=== PATIENT | male | born 1980 ===

== ENCOUNTER 2017-09-10 21:36 | Emergency (ER) | payer OTHER ==
[2017-09-10 21:53] VITALS: BP 116/78; PULSE 78; RESP 18; TEMP 97.9; O2SAT 99
[2017-09-10] MEDS ORDERED: Tdap Vaccine 0.5 ml Vial (10-64 yrs) IM ONE (22:57)
[2017-09-10] MEDS ORDERED: Lidocaine 1% Inj (20ml) IJ ONE (22:57)
[2017-09-10] MEDS ORDERED: Lidocaine 2% Inj (20ml) INFIL ONE (23:24)
--- NOTE | 2017-09-10 23:36 | ED PDOC ---
Upper Extremity Pain/Injury Time Seen by Provider: 09/10/17 22:54 Chief Complaint (Nursing): Abnormal Skin Integrity History Per: Patient Additional Complaint(s): Pt. states earlier today while at work he accidentally cut himself with a knife on the L thumb. Denies numbness, tingling, FB sensation. Past Medical History Reviewed: Historical Data, Nursing Documentation, Vital Signs Vital Signs: Last Vital Signs Temp 97.9 F 09/10/17 21:51 Pulse 78 09/10/17 21:51 Resp 18 09/10/17 21:51 BP 116/78 09/10/17 21:51 Pulse Ox 99 09/10/17 21:51 - Family History Family History: States: No Known Family Hx - Home Medications Home Medications: Ambulatory Orders Medication Instructions Recorded Cephalexin [cephalexin] 500 mg PO Q6 #28 cap 09/11/17 - Allergies Allergies/Adverse Reactions: Allergies Allergy/AdvReac Type Severity Reaction Status Date / Time No Known Allergies Allergy Verified 09/10/17 21:51 Review of Systems ROS Statement: Except As Marked, All Systems Reviewed And Found Negative Physical Exam - Physical Exam Appears: Positive for: Well, Non-toxic, No Acute Distress Skin: Positive for: Normal Color, Warm. Negative for: Rash Eye Exam: Positive for: Normal appearance Pulses-Radial (L): 2+ Extremity: Positive for: Normal ROM (L Thumb with FROM actively), Other (Dorsal surface of L thumb with 3 inch linear superficial laceration without active bleeding; L thumb with cap refill < 2 seconds) Neurologic/Psych: Positive for: Alert, Oriented - ECG O2 Sat by Pulse Oximetry: 99 Procedures - Laceration/Wound Repair laceration repair Wound Repaired With: Sutures Suture Size/Type: 5:0, proline, nylon Number of Sutures: 19 Wound Complexity: Intermediate Sterile Dressing Applied?: Yes Splint Applied?: Yes (velcro thumb splint applied by PA) Disposition - Clinical Impression Clinical Impression: Thumb laceration - Patient ED Disposition Is Patient to be Admitted: No - Disposition Referrals: [facility] [Outside] Disposition: Routine/Home Disposition Time: 00:55 Condition: STABLE Additional Instructions: Suture removal in 14 days. Return to ED in 48 hours for wound check. Prescriptions: Cephalexin [cephalexin] 500 mg PO Q6 #28 cap Instructions: Wound Care (DC), Laceration Repair With Stitches (DC) Forms: [employer] (Vietnamese), [facility] ED School/Work Excuse Print Language: LITHUANIAN
[2017-09-11] MEDS ORDERED: Tdap Vaccine 0.5 ml Vial (10-64 yrs) IM ONE (00:09)
== END 2017-09-11 00:53 | disposition home or self-care (01) ==
LOC: H.ER 21:36
DX: S61.012A Laceration without foreign body of left thumb without damage to nail, initial encounter (principal); W26.0XXA Contact with knife, initial encounter; Y99.0 Civilian activity done for income or pay; Z23 Encounter for immunization

== ENCOUNTER 2017-09-14 12:05 | Emergency (ER) | payer OTHER ==
[2017-09-14 12:18] VITALS: RESP 18
--- NOTE | 2017-09-14 12:31 | ED PDOC ---
HPI: Wound Care - HPI Time Seen by Provider: 09/14/17 12:19 Chief Complaint (Nursing): Wound Check Chief Complaint (Provider): Wound Check History Per: Patient Exam Limitations: no limitations Location Of Injury: Left: Hand (left thumb) Additional Complaint(s): 37 year old male presents to the ED for a wound check. Patient reports he was here 4 days ago for repair of laceration to left thumb. Patient states that he has been taking keflex as prescribed. Patient denies any fever, chills or drainage from affected area. Tetanus is up to date. PCP: none Past Medical History Reviewed: Historical Data, Nursing Documentation, Vital Signs Vital Signs: Last Vital Signs Temp 97.9 F 09/14/17 12:16 Pulse 86 09/14/17 12:16 Resp 18 09/14/17 12:16 BP 128/73 09/14/17 12:16 Pulse Ox 98 09/14/17 12:16 - Medical History PMH: No Chronic Diseases - Family History Family History: States: No Known Family Hx - Living Arrangements Living Arrangements: With Family - Social History Current smoker - smoking cessation education provided: No Alcohol: None Drugs: Denies - Immunization History Hx Tetanus Toxoid Vaccination: Yes - Home Medications Home Medications: Ambulatory Orders Medication Instructions Recorded Cephalexin [cephalexin] 500 mg PO Q6 #28 cap 09/11/17 - Allergies Allergies/Adverse Reactions: Allergies Allergy/AdvReac Type Severity Reaction Status Date / Time No Known Allergies Allergy Verified 09/14/17 12:15 Review of Systems ROS Statement: Except As Marked, All Systems Reviewed And Found Negative Constitutional: Negative for: Fever Skin: Positive for: Other (wound check of laceration to left thumb) Physical Exam - Reviewed Nursing Documentation Reviewed: Yes Vital Signs Reviewed: Yes - Physical Exam Appears: Positive for: Well, Non-toxic, No Acute Distress Skin: Positive for: Normal Color. Negative for: Rash Eye Exam: Positive for: Normal appearance Extremity: Positive for: Normal ROM, Other (well healing sutured laceration to the left thumb with no infection noted, N/V intact) Neurologic/Psych: Positive for: Alert, Oriented. Negative for: Motor/Sensory Deficits - ECG O2 Sat by Pulse Oximetry: 98 (RA) Pulse Ox Interpretation: Normal Medical Decision Making Medical Decision Making: Initial Impression: 37 year old male here for wound check Wound is healing well, sutures are intact, no infection noted. Patient was advised to return on September 24 for suture removal or sooner for any worsening symptoms or concerns. He is advised to continue with antibiotics to completion. Scribe Attestation: Documented by Misha Mello acting as a scribe for Miroslava LANG. Provider Scribe Attestation: All medical record entries made by the Scribe were at my direction and personally dictated by me. I have reviewed the chart and agree that the record accurately reflects my personal performance of the history, physical exam, medical decision making, and the department course for this patient. I have also personally directed, reviewed, and agree with the discharge instructions and disposition. Disposition - Clinical Impression Clinical Impression: Encounter for wound re-check, Thumb laceration - Patient ED Disposition Is Patient to be Admitted: No Counseled Patient/Family Regarding: Need For Followup - Disposition Referrals: [facility] [Outside] Disposition: Routine/Home Disposition Time: 12:36 Condition: STABLE Additional Instructions: CONTINUE WITH ANTIBIOTICS DIRECTED. WASH WOUND DAILY WITH SOAP AND WATER. RETURN September FOR SUTURE REMOVAL OR SOONER IF WORSE. Instructions: Laceration Repair With Stitches (DC) Forms: [employer] (Cymro)
[2017-09-14 12:36] VITALS: BP 112/80; PULSE 81; TEMP 98
[2017-09-14 12:37] VITALS: O2SAT 98
== END 2017-09-14 13:00 | disposition home or self-care (01) ==
LOC: H.ER 12:05
DX: Z48.00 Encounter for change or removal of nonsurgical wound dressing (principal)

== ENCOUNTER 2017-09-24 11:54 | Emergency (ER) | payer OTHER ==
[2017-09-24 11:59] VITALS: BP 142/82; PULSE 65; RESP 17; TEMP 98.7; O2SAT 98
--- NOTE | 2017-09-24 12:55 | ED PDOC ---
HPI: General Adult Time Seen by Provider: 09/24/17 12:14 Chief Complaint (Nursing): Upper Extremity Problem/Injury Chief Complaint (Provider): Suture Removal History Per: Patient History/Exam Limitations: no limitations Onset/Duration Of Symptoms: Days (x2 weeks) Current Symptoms Are (Timing): Still Present Additional Complaint(s): 37 y/o male with no significant PMHx presenting for suture removal. Patient states 2 weeks ago he cut his left thumb with a knife and received 19 sutures at this facility. He denies any fever, drainage, redness, or swelling. Tetanus UTD. Patient is right hand dominant. PMD: None Past Medical History Reviewed: Historical Data, Nursing Documentation, Vital Signs Vital Signs: Last Vital Signs Temp 98.7 F 09/24/17 11:58 Pulse 65 09/24/17 11:58 Resp 17 09/24/17 11:58 BP 142/82 09/24/17 11:58 Pulse Ox 98 09/26/17 12:49 - Medical History PMH: No Chronic Diseases Denies: Chronic Kidney Disease - Surgical History Surgical History: No Surg Hx - Family History Family History: States: Unknown Family Hx - Social History Current smoker - smoking cessation education provided: No Alcohol: None Drugs: Denies - Immunization History Hx Tetanus Toxoid Vaccination: Yes - Home Medications Home Medications: Ambulatory Orders Medication Instructions Recorded Cephalexin [cephalexin] 500 mg PO Q6 #28 cap 09/11/17 - Allergies Allergies/Adverse Reactions: Allergies Allergy/AdvReac Type Severity Reaction Status Date / Time No Known Allergies Allergy Verified 09/14/17 12:15 Review of Systems ROS Statement: Except As Marked, All Systems Reviewed And Found Negative Constitutional: Negative for: Fever Skin: Positive for: Lesions (healing laceration to left 1st digit). Negative for: Rash Physical Exam - Reviewed Nursing Documentation Reviewed: Yes Vital Signs Reviewed: Yes - Physical Exam Comments: GENERAL APPEARANCE: Patient is awake, alert, oriented x 3, resting comfortably, in no acute distress. SKIN: Warm, dry; (-) cyanosis. NECK: Supple, FROM ENT: Mucus membranes moist. Airway patent, (-) stridor. RESPIRATORY: Lungs clear to auscultation bilaterally (-) rales (-) rhonchi (-) wheezing. CARDIAC: (-) murmur LEFT HAND: Healing 6cm, linear laceration to the dorsum of the entire left 1st digit, (-) erythema, (-) swelling, (-) tenderness, (-) drainage, (-) evidence of surrounding cellulitis; full ROM of all digits, NV intact, capillary refill intact. NEURO AND PSYCH: Mental status as above. Gait steady, speech clear. - ECG O2 Sat by Pulse Oximetry: 98 (RA) Pulse Ox Interpretation: Normal Medical Decision Making Medical Decision Making: Impression: Suture removal, wound check Plan: -Suture removal to be performed by Durga ZAIDI. 1245 Sutures removed without difficulty by Durga ZAIDI. Patient tolerated procedure well. Dressing placed after suture removal. Patient advised to continue wound care at home. 1255 On exam, patient remains AAOx3, in no acute distress. On exam, neck is supple, lungs CTA, cardiac RRR, neuro exam shows no focal findings. Vitals stable. Diagnostic results d/w the patient in great detail. Dx of suture removal, wound check d/w the patient. Based on history, exam and diagnostic results plan will be for discharge and outpatient follow up. Advised to follow up with primary care physician/clinic in 1-2 days without fail. Return to the emergency room at any time for any new or worsening symptoms. Patient states he fully agrees with and understands discharge instructions. States that he agrees with the plan and disposition. Verbalized and repeated discharge instructions and plan. I have given the patient opportunity to ask any additional questions. Scribe Attestation: Documented by Ovidio Venegas, acting as a scribe for Shonna Calixto PA-C. Provider Scribe Attestation: All medical record entries made by the scribe were at my direction and personally dictated by me. I have reviewed the chart and agree that the record accurately reflects my personal performance of the history, physical exam, medical decision making, and the department course for this patient. I have also personally directed, reviewed, and agree with the discharge instructions and disposition. Disposition - Clinical Impression Clinical Impression: Visit for suture removal, Visit for wound care - Patient ED Disposition Is Patient to be Admitted: No Counseled Patient/Family Regarding: Diagnosis, Need For Followup - Disposition Referrals: [facility] [Outside] Disposition: Routine/Home Disposition Time: 12:59 Condition: STABLE Additional Instructions: FOLLOW UP AT CLINIC NEEDED FOR WOUND CARE. RETURN TO ED WITH ANY NEW OR WORSENING SYMPTOMS. KEEP WOUND CLEAN AND DRY. Instructions: Stitches Removal, Wound Care Forms: [employer] (Norwegian) Print Language: ARMENIAN
== END 2017-09-24 13:05 | disposition home or self-care (01) ==
LOC: H.ER 11:54
DX: Z48.02 Encounter for removal of sutures (principal)